=== PATIENT | female | born 1940 | race American Indian/Alaskan Native ===

== ENCOUNTER 2024-07-13 22:26 | Emergency (ER) | payer MEDICARE, BC, SELFPAY ==
[2024-07-13 22:30] VITALS: BP 146/74
[2024-07-14 00:08] VITALS: BMI 24.0
[2024-07-14 00:14] VITALS: BP 186/66
[2024-07-14 01:00] VITALS: BP 180/62
--- NOTE | 2024-07-14 01:32 | ED.GENMED ---
History of Present Illness
General
Chief Complaint: Fall
Source: patient and family (Daughter and grandson)
Exam Limitations: none
Time Seen by Provider: 07/14/24 00:06
Nursing documentation reviewed up to this point in time: agreed with
History of Present Illness
History of Present Illness:
The patient is a pleasant 83-year-old female who got up out of a car and tripped over a curb, falling on the right side of her body. Patient hit the right side of her head. She has extensive bruising around her right eye and right forehead.
Patient also complains of right upper rib pain. She denies shortness of breath, neck pain and back pain. Patient was able to get up and walk after the fall. She denies hip pain. Patient takes a baby aspirin but no other blood thinners. The
injury occurred at around 3:30 PM yesterday. Patient denies any vomiting and vision changes.
Past History
Past History
ED Past Medical History: Psychiatric (Anxiety, depression) and Other (Dementia)
ED Past Surgical History: Other
Social History
Tobacco: Non-smoker
Alcohol: None
Drug: None
Personal: Other
Living: with family
Employment: Retired
Family History
Family History: Other
Review of Systems
Review of Systems
Allergies reviewed?: Yes
All Other Systems: ROS reviewed and negative except as documented in HPI and ROS
Constitutional: Reports no symptoms
EENT: Reports other (Pain and bruising around right eye)
Respiratory: Reports no symptoms
Cardiac: Reports no symptoms
ABD/GI: Reports no symptoms
: Reports no symptoms
Musculoskeletal: Reports other (Right-sided chest wall pain)
Skin: Reports no symptoms
Neurological: Reports no symptoms
Endocrine: Reports no symptoms
Hematologic/Lymphatic: Reports no symptoms
Psychiatric: Reports no symptoms
Phy Exam
Physical Exam
Physical Exam:
Physical Exam
General: no apparent distress, not acutely ill
Neck: Ecchymotic right periorbital area. Nontender C-spine.
Heart: s1/s2 regular rate and rhythm, no murmur. equal radial pulses. Mild right chest wall tenderness along her nipple line.
Lungs: no acute respiratory distress. clear bilaterally. No vertebral spine tenderness
Abdomen: normal bowel sounds. not tender. no CVAT. Soft and nontender throughout
Neuro: alert and oriented. no focal neurological deficits
Skin: no rash
Psychiatric: well kept. interactive and cooperative
Extremities: no edema. no calf tenderness. negative homans. good distal pulses. Ecchymotic right dorsum of hand. Nontender pelvis and hips.
Course
Orders/Labs/Results
Orders:
Orders
07/13/24 22:[address] [CT Head W/o Iv Contrast] Urgent
Comment:
Reason For Exam: FALL ON BABY ASPIRIN
07/13/24 22:45
Facial Bones wo Contrast CT [CT Facial Bones W/o Iv Contras] Urgent
Comment:
Reason For Exam: fall
07/14/24 00:47
Hand, Right 3 View [CR Hand - Right Min 3 Views] Urgent
Comment:
Reason For Exam: fall
07/14/24 00:48
Ribs, Right 3 View W/PA Chest [CR Ribs-right 3 Vw W/pa Chest*] Urgent
Comment:
Reason For Exam: R rib pain, fall
07/14/24 01:26
Complete Blood Count/With Diff Urgent
PTT Urgent
Prothrombin Time Urgent
07/14/24 01:40
Cervical Collar- Treatment ONCE
Collar Type: Hard Cervical Collar
07/14/24 01:44
Acetaminophen [Tylenol] 1,000 mg PO NOW STA
07/14/24 01:45
Donepezil HCl [Aricept] 10 mg PO NOW STA
07/14/24 01:56
Comprehensive Metabolic Panel Urgent
Comment: REDRAW
07/14/24 02:02
Mirtazapine [Remeron] 15 mg PO NOW STA
Abnormal Lab Results
07/14/24
01:26
RBC 3.81 L 10^6/uL
(4.20-5.40)
Hgb 11.7 L g/dL
(12.0-16.0)
Hct 34.2 L %
(37.0-47.0)
Absolute Neuts (auto) 6.6 H 10^3/uL
(1.4-6.5)
Absolute Monos (auto) 0.7 H 10^3/uL
(0.1-0.6)
07/14/24 01:26
Vital Signs
Initial and Last Documented VS:
Initial Vital Signs
Temp Pulse Resp BP Pulse Ox
97.4 F 76 24 146/74 98
07/13/24 22:30 07/13/24 22:30 07/13/24 22:30 07/13/24 22:30 07/13/24 22:30
Last Documented Vital Signs
Temp Pulse Resp BP Pulse Ox
98.1 F 70 14 180/62 97
07/14/24 00:14 07/14/24 01:31 07/14/24 01:00 07/14/24 01:00 07/14/24 00:30
MDM/Problems Addressed
Differential Diagnosis Includes:
Subdural hematoma, traumatic subarachnoid, skull fracture, orbital wall fracture
MDM/Problems Addressed:
Patient presents with acute ecchymoses of right face and head after a fall
*Radiology
Radiology exam reviewed: preliminary read by ED provider (Right hand x-ray reviewed by me. Possible fourth metacarpal fracture. Chest x-ray reviewed by me. No acute fracture seen) and radiology read reviewed
*Pulse Oximetry
Patient hypoxic: no
*EKG
Interpreted by ED Provider?: NA
*[employer] Interpretation
Rate: normal
Interpretation: normal
Rhythm: sinus
*Critical Care Note
Total Time (30-74mins, 75-104mins- exclusive of procedures): 55 min
comment:
55 minutes of critical care given to the patient including reviewing her x-rays, lab results, CT report, counseling the patient and family and speaking to neurosurgery and trauma at [facility]
Data Reviewed
Review of Other/Old Records Reveals: Testing (Cardiac echo 2019 shows normal EF)
Source: patient and family
Patient Management
Social determinants of health affecting care: Living situation and Strong social support
Discussion with other providers: Other (Case discussed with Dr. Sai Mancia who recommended transfer to [facility])
Escalation/DeEscalation of care consider admission/obs:
Case discussed with Dr. Israel at [facility] who was agreeable to accepting the patient. Patient will be placed in a c-collar. Patient continues to look well without nausea and vomiting. She denies neck pain. She is breathing comfortably.
Her abdomen remains soft and nontender nondistended.
ED Attending Note
-
Portions of this chart may have been created with voice recognition software.� Occasional wrong word or��sound alike� substitutions may have occurred due to the inherent limitations of voice recognition software.
Discharge Plan
Departure
Patient Disposition: Acute Care Hospital
Date of Disposition: 07/14/24
Time of Disposition: 00:32
Condition: Fair
Covid-19: Not Applicable
Discharge Problem:
Fracture of nasal bone, Closed blow-out fracture of right orbital floor, Acute subdural hematoma, Contusion of right chest wall
Prescriptions:
No Action
donepezil 5 mg Tablet
5 mg PO HS
amlodipine 5 mg Tablet
5 mg PO DAILY
acetaminophen [Tylenol Arthritis] 650 mg Tablet Extended Release
1,300 mg PO HS
acetaminophen [Tylenol Arthritis] 650 mg Tablet Extended Release
650 mg PO DAILY
levothyroxine [Synthroid] 50 mcg Tablet
50 mcg PO DAILY
mirtazapine 15 mg Tablet
15 mg PO HS
sertraline 50 mg Tablet
50 mg PO DAILY
aspirin 81 mg Capsule
81 mg PO DAILY
Referrals:
UNKNOWN - PT DOES,NOT KNOW [Family Provider] -
Hospital Transfer
Other hospital: [facility]
I certify that the patient requires transfer: Yes
Discussed case with accepting physician: Dr Israel
Reason for transfer: specialties available
Interventions
Interventions:
*Risk Screen - Suicide Last Done: 07/13/24 22:30
*General Assessment Last Done: 07/14/24 00:09
*Neglect/Abuse Screening Last Done: 07/13/24 22:30
*ED COVID-19 Vaccine History Last Done: 07/14/24 00:09
ED-Musculoskeletal Assessment Last Done: 07/14/24 00:09
ED- Neurological Assessment Last Done: 07/14/24 00:40
ED-Skin Assessment Last Done: 07/14/24 00:09
Discharge Date and Time
Print Language: MALAYSIAN
[2024-07-14 01:34] VITALS: BP 190/64
[2024-07-14 01:42] LABS: % Basophils 0.6 % (0-2); % Eosinophils 3.2 % (0-6); % Immature Granulocytes 0.2 % (0-0.5); % Lymphocytes 21.8 % (20.5-51.1); % Monocytes 7.1 % (1.7-9.3); % Neutrophils 67.1 % (42.2-75.2); Absolute Basophils 0.1 10^3/uL (0-0.2); Absolute Eosinophils 0.3 10^3/uL (0-0.7); Absolute Lymphocytes 2.1 10^3/uL (1.2-3.4); Absolute Monocytes 0.7 10^3/uL (0.1-0.6); Absolute Neutrophils 6.6 10^3/uL (1.4-6.5); Hematocrit 34.2 % (37.0-47.0); Hemoglobin 11.7 g/dL (12.0-16.0); Mean Corp Hgb Conc. 34.2 g/dL (33.0-37.0); Mean Corpuscular Hgb 30.7 pg (27.0-31.0); Mean Corpuscular Volume 89.8 fL (81.0-99.0); Mean Platelet Volume 10.4 fL (7.4-10.4); Nucleated Red Blood Cells % 0 %; Platelet Count 249 10^3/uL (130-400); Red Blood Cell Count 3.81 10^6/uL (4.20-5.40); Red Cell Dist. Width 13.5 % (11.5-14.5); White Blood Cell Count 9.8 10^3/uL (4.8-10.8)
[2024-07-14 01:52] LABS: INR 1.03; PT 13.3 Sec (11.4-14.6)
[2024-07-14 01:53] LABS: APTT 30.4 Sec (23.4-35.0)
[2024-07-14 02:20] LABS: Blood Urea Nitrogen 22 mg/dl (7-17); Calcium 9.1 mg/dl (8.4-10.2); Carbon Dioxide 27 mmol/L (22-30); Chloride 107 mmol/L (98-107); Estimated Creatinine Clearance 45 ml/min; Glucose 100 mg/dl (70-99); Sodium 139 mmol/L (135-145); eGFR > 60.00
[2024-07-14] MEDS: REMERON 15 MG PO (02:30)
[2024-07-14] MEDS: TYLENOL 1000 MG PO (02:30)
[2024-07-14] MEDS: ARICEPT 10 MG PO (02:30)
[2024-07-14 03:00] VITALS: BP 163/50
== END 2024-07-14 04:04 | disposition short-term general hospital (02) ==
LOC: EMR 22:26
PROVIDERS: EMERGENCY PHYSICIAN Emergency Medicine
DX: S02.2XXA Fracture of nasal bones, initial encounter for closed fracture (principal); S02.31XA Fracture of orbital floor, right side, initial encounter for closed fracture; S06.5XAA Traumatic subdural hemorrhage with loss of consciousness status unknown, initial encounter; S20.211A Contusion of right front wall of thorax, initial encounter; S00.83XA Contusion of other part of head, initial encounter; W01.0XXA Fall on same level from slipping, tripping and stumbling without subsequent striking against object, initial encounter; F03.94 Unspecified dementia, unspecified severity, with anxiety
CPT/HCPCS: 99284; 70450; 70486; 71101; 73130; 80048; 85025; 85610; 85730

== ENCOUNTER → 2024-08-18 17:23 | Outpatient (REF) | payer MEDICARE, BC, SELFPAY | LOC: PAVMRI 17:23 | PROVIDERS: ATTENDING PHYSICIAN Physical Medicine & Rehabilitation; FAMILY PHYSICIAN Internal Medicine | DX: M54.16 Radiculopathy, lumbar region (principal) | CPT/HCPCS: 72148 ==

== ENCOUNTER → 2024-11-27 13:06 | Outpatient (REF) | payer MEDICARE, BC, SELFPAY ==
[2024-11-27 13:44] LABS: % Eosinophils 3.4 % (0-6); % Immature Granulocytes 0.1 % (0-0.5); % Lymphocytes 46.1 % (20.5-51.1); % Monocytes 7.7 % (1.7-9.3); % Neutrophils 41.7 % (42.2-75.2); Absolute Basophils 0.1 10^3/uL (0-0.2); Absolute Eosinophils 0.2 10^3/uL (0-0.7); Absolute Lymphocytes 3.2 10^3/uL (1.2-3.4); Absolute Monocytes 0.5 10^3/uL (0.1-0.6); Absolute Neutrophils 2.9 10^3/uL (1.4-6.5); Hematocrit 35.2 % (37.0-47.0); Hemoglobin 11.5 g/dL (12.0-16.0); Mean Corp Hgb Conc. 32.7 g/dL (33.0-37.0); Mean Corpuscular Hgb 30.3 pg (27.0-31.0); Mean Corpuscular Volume 92.9 fL (81.0-99.0); Mean Platelet Volume 10.3 fL (7.4-10.4); Nucleated Red Blood Cells % 0 %; Platelet Count 245 10^3/uL (130-400); Red Blood Cell Count 3.79 10^6/uL (4.20-5.40); Red Cell Dist. Width 13.7 % (11.5-14.5); White Blood Cell Count 6.9 10^3/uL (4.8-10.8)
[2024-11-27 14:38] LABS: ALT (SGPT) 21 U/L (0-35); AST (SGOT) 32 U/L (14-36); Albumin 4.1 g/dl (3.5-5.0); Alkaline Phosphatase 118 U/L (38-126); Blood Urea Nitrogen 19 mg/dl (7-17); Calcium 9.6 mg/dl (8.4-10.2); Carbon Dioxide 31 mmol/L (22-30); Chloride 102 mmol/L (98-107); Glucose 84 mg/dl (70-99); Sodium 136 mmol/L (135-145); Total Bilirubin 0.2 mg/dl (0.2-1.3); Total Protein 6.5 g/dl (6.3-8.2); eGFR > 60.00
[2024-11-27 14:45] LABS: NT-proBNP 414 pg/ml
[2024-11-27 14:54] LABS: Free T4 1.21 ng/dl (0.78-2.19)
[2024-11-27 15:08] LABS: TSH 2.52 uIU/ml (0.47-4.68)
== END ==
LOC: REG 13:06
PROVIDERS: ATTENDING PHYSICIAN Internal Medicine; FAMILY PHYSICIAN Internal Medicine
DX: R60.9 Edema, unspecified (principal); R06.02 Shortness of breath; E03.9 Hypothyroidism, unspecified; D64.9 Anemia, unspecified
CPT/HCPCS: 36415; 80053; 83880; 84439; 84443; 85025

== ENCOUNTER → 2024-12-18 10:22 | Outpatient (REF) | payer MEDICARE, BC, SELFPAY | LOC: RAD 10:22 | PROVIDERS: ATTENDING PHYSICIAN Internal Medicine | DX: I87.2 Venous insufficiency (chronic) (peripheral) (principal); M79.662 Pain in left lower leg | CPT/HCPCS: 93971 ==

== ENCOUNTER → 2024-12-22 14:05 | Outpatient (REF) | payer MEDICARE, BC, SELFPAY | LOC: HWRCS 14:05 | PROVIDERS: ATTENDING PHYSICIAN Internal Medicine | DX: I35.0 Nonrheumatic aortic (valve) stenosis (principal) | CPT/HCPCS: 93306 ==

== ENCOUNTER → 2025-09-02 09:27 | Outpatient (REF) | payer MEDICARE, BC, SELFPAY ==
[2025-09-02 10:26] LABS: Hematocrit 35.1 % (37.0-47.0); Hemoglobin 11.5 g/dL (12.0-16.0); Mean Corp Hgb Conc. 32.8 g/dL (33.0-37.0); Mean Corpuscular Volume 93.4 fL (81.0-99.0); Nucleated Red Blood Cells % 0 %; Platelet Count 244 10^3/uL (130-400); Red Cell Dist. Width 13.3 % (11.5-14.5)
[2025-09-02 11:42] LABS: TSH 1.98 uIU/ml (0.47-4.68)
[2025-09-02 11:45] LABS: ALT (SGPT) 19 U/L (0-35); AST (SGOT) 27 U/L (14-36); Albumin 4.0 g/dl (3.5-5.0); Alkaline Phosphatase 116 U/L (38-126); Blood Urea Nitrogen 14 mg/dl (7-17); Calcium 8.8 mg/dl (8.4-10.2); Carbon Dioxide 26 mmol/L (22-30); Chloride 108 mmol/L (98-107); Glucose 94 mg/dl (70-99); HDL Cholesterol 59 mg/dl; LDL Cholesterol, Calculated 129 mg/dl; Potassium 4.3 mmol/L (3.5-5.1); Sodium 138 mmol/L (135-145); Total Protein 6.6 g/dl (6.3-8.2); Very Low Density Lipoprotein 29 mg/dl (0-30); eGFR > 60.00
== END ==
LOC: REG 09:27
PROVIDERS: ATTENDING PHYSICIAN Internal Medicine
DX: E03.9 Hypothyroidism, unspecified (principal); I10 Essential (primary) hypertension; E78.2 Mixed hyperlipidemia; M17.10 Unilateral primary osteoarthritis, unspecified knee; M51.360 Other intervertebral disc degeneration, lumbar region with discogenic back pain only; F03.B0 Unspecified dementia, moderate, without behavioral disturbance, psychotic disturbance, mood disturbance, and anxiety; Z00.00 Encounter for general adult medical examination without abnormal findings; Z23 Encounter for immunization
CPT/HCPCS: 36415; 80053; 80061; 84443; 85025